=== PATIENT | male | born 1985 | race Asian ===

== ENCOUNTER 2020-11-03 23:00 | Emergency (ER) | payer SELFPAY ==
[~2020-11-03] VITALS: Ht 167.6 cm; Wt 74.8 kg
== END 2020-11-04 01:25 | disposition home or self-care (01) ==
LOC: ER 23:54
DX: F41.9 Anxiety disorder, unspecified (principal); F41.0 Panic disorder [episodic paroxysmal anxiety]; Z20.822 Contact with and (suspected) exposure to COVID-19
CPT/HCPCS: 99282; U0002